=== PATIENT | female | born 1995 | race African-American/Black ===

== ENCOUNTER 2017-06-20 04:39 | Inpatient (IN) | payer OTHER ==
[~2017-06-20] VITALS: Ht 167.6 cm; Wt 124.5 kg
[2017-06-20 04:40] VITALS: BP 121/77; PULSE 75; RESP 16; TEMP 98.5; O2SAT 94
--- NOTE | 2017-06-20 05:29 | PD ---
HPI Chief Complaint: Psychiatric Symptoms Time Seen by Provider: 05:14 Travel History International Travel<30 days: No Contact w/Intl Traveler<30days: No Traveled to known affect area: No History of Present Illness HPI 22-year-old female presents emergency Department accompanied by her mother for evaluation of auditory hallucinations with self persecution and suicidal ideation. Patient states that she hears voices in her head that sound identical to her voice. There telling her that she is worthless and no one likes her. They also tell her that she should kill her self. The patient has a history of cutting in the past. She denies any toxic ingestions. No cutting since March. She is up-to-date with immunizations. He is unsure of her last menstrual cycle. She feels that it is approximately 6 weeks ago and her . She does smoke, drink alcohol and smoke marijuana on occasion. She denies any current medical complaints. No homicidal ideation. PFSH Past Medical History Depression: Yes Tetanus Vaccination: < 5 Years ?: Not LMP: 04/2017 Past Surgical History Surgical History: No Previous Surgery Social History Alcohol Use: Yes Tobacco Use: Yes Substance Use: Yes (MARIJUANA ) Allergies-Medications (Allergen,Severity, Reaction): Coded Allergies: No Known Allergies (Unverified , 06/20/17) Reported Meds & Prescriptions Reported Meds & Active Scripts Active No Active Prescriptions or Reported Medications Review of Systems General / Constitutional: No: Fever Eyes: No: Visual changes HENT: No: Headaches Cardiovascular: No: Chest Pain or Discomfort Respiratory: No: Shortness of Breath Gastrointestinal: No: Abdominal Pain Genitourinary: No: Dysuria Musculoskeletal: No: Pain Skin: No Rash Neurologic: No: Weakness Psychiatric: Positive: Depression, Suicidal Ideations, Disorder of Thought, Mood Disorder, Substance Abuse, No: Anxiety, Homicidal Ideation Endocrine: No: Polydipsia Hematologic/Lymphatic: No: Easy Bruising Physical Exam Narrative GENERAL: Well-nourished, well-developed patient. SKIN: Warm and dry. HEAD: Normocephalic and atraumatic. EYES: No scleral icterus. No injection or drainage. ENT: No nasal drainage noted. Mucous membranes pink. Airway patent. NECK: Supple, trachea midline. Moves head freely without obvious discomfort. CARDIOVASCULAR: Regular rate and rhythm without murmurs, gallops, or rubs. RESPIRATORY: Breath sounds equal bilaterally. No accessory muscle use. GASTROINTESTINAL: Abdomen soft, non-tender, nondistended. EXTREMITIES: No cyanosis or edema. BACK: Nontender without obvious deformity. No CVA tenderness. NEURO: Patient is alert and oriented. no sensorimotor deficits. Nonfocal. Normal speech. PSYCH: Positive auditory hallucinations. Data Data Last Documented VS Vital Signs Date Time Temp Pulse Resp B/P (MAP) Pulse Ox O2 Delivery O2 Flow Rate FiO2 06/20/17 04:40 98.5 75 16 121/77 (92) 94 Room Air Orders Orders Complete Blood Count With Diff (06/20/17 05:24) Comprehensive Metabolic Panel (06/20/17 05:24) Thyroid Stimulating Hormone (06/20/17 05:24) Urinalysis - C+S If Indicated (06/20/17 05:24) Psych Screen (06/20/17 05:24) Drug Screen, Random Urine (06/20/17 05:24) Alcohol (Ethanol) (06/20/17 05:24) Ed Urine Pregnancytest Poc (06/20/17 05:24) Labs Laboratory Tests Test 06/20/17 05:35 06/20/17 05:45 Urine Color YELLOW Urine Turbidity HAZY Urine pH 6.5 Urine Specific [place] 1.019 Urine Protein NEG mg/dL Urine Glucose (UA) NEG mg/dL Urine Ketones NEG mg/dL Urine Occult Blood NEG Urine Nitrite NEG Urine Bilirubin NEG Urine Urobilinogen LESS THAN 2.0 MG/DL Urine Leukocyte Esterase MOD Urine RBC 1 /hpf Urine WBC 6 /hpf Urine Squamous Epithelial Cells 3 /hpf Urine Amorphous Sediment RARE Urine Bacteria FEW /hpf Urine Mucus FEW /lpf Microscopic Urinalysis Comment CULT NOT INDICATED Urine Opiates Screen NEG Urine Barbiturates Screen NEG Urine Amphetamines Screen NEG Urine Benzodiazepines Screen NEG Urine Cocaine Screen NEG Urine Cannabinoids Screen POS White Blood Count 11.7 TH/MM3 Red Blood Count 4.50 MIL/MM3 Hemoglobin 13.5 GM/DL Hematocrit 39.0 % Mean Corpuscular Volume 86.7 FL Mean Corpuscular Hemoglobin 30.0 PG Mean Corpuscular Hemoglobin Concent 34.6 % Red Cell Distribution Width 12.9 % Platelet Count 264 TH/MM3 Mean Platelet Volume 8.5 FL Neutrophils (%) (Auto) 61.3 % Lymphocytes (%) (Auto) 30.2 % Monocytes (%) (Auto) 5.8 % Eosinophils (%) (Auto) 2.1 % Basophils (%) (Auto) 0.6 % Neutrophils # (Auto) 7.2 TH/MM3 Lymphocytes # (Auto) 3.5 TH/MM3 Monocytes # (Auto) 0.7 TH/MM3 Eosinophils # (Auto) 0.2 TH/MM3 Basophils # (Auto) 0.1 TH/MM3 CBC Comment DIFF FINAL Differential Comment [facility] Medical Decision Making Medical Screen Exam Complete: Yes Emergency Medical Condition: Yes Medical Record Reviewed: Yes Interpretation(s) Laboratory Tests Test 06/20/17 05:35 06/20/17 05:45 Urine Color YELLOW Urine Turbidity HAZY Urine pH 6.5 Urine Specific [place] 1.019 Urine Protein NEG mg/dL Urine Glucose (UA) NEG mg/dL Urine Ketones NEG mg/dL Urine Occult Blood NEG Urine Nitrite NEG Urine Bilirubin NEG Urine Urobilinogen LESS THAN 2.0 MG/DL Urine Leukocyte Esterase MOD Urine RBC 1 /hpf Urine WBC 6 /hpf Urine Squamous Epithelial Cells 3 /hpf Urine Amorphous Sediment RARE Urine Bacteria FEW /hpf Urine Mucus FEW /lpf Microscopic Urinalysis Comment CULT NOT INDICATED Urine Opiates Screen NEG Urine Barbiturates Screen NEG Urine Amphetamines Screen NEG Urine Benzodiazepines Screen NEG Urine Cocaine Screen NEG Urine Cannabinoids Screen POS White Blood Count 11.7 TH/MM3 Red Blood Count 4.50 MIL/MM3 Hemoglobin 13.5 GM/DL Hematocrit 39.0 % Mean Corpuscular Volume 86.7 FL Mean Corpuscular Hemoglobin 30.0 PG Mean Corpuscular Hemoglobin Concent 34.6 % Red Cell Distribution Width 12.9 % Platelet Count 264 TH/MM3 Mean Platelet Volume 8.5 FL Neutrophils (%) (Auto) 61.3 % Lymphocytes (%) (Auto) 30.2 % Monocytes (%) (Auto) 5.8 % Eosinophils (%) (Auto) 2.1 % Basophils (%) (Auto) 0.6 % Neutrophils # (Auto) 7.2 TH/MM3 Lymphocytes # (Auto) 3.5 TH/MM3 Monocytes # (Auto) 0.7 TH/MM3 Eosinophils # (Auto) 0.2 TH/MM3 Basophils # (Auto) 0.1 TH/MM3 CBC Comment DIFF FINAL Differential Comment Differential Diagnosis MDM: High Differential diagnoses: Schizophrenia, schizoaffective disorder, bipolar, anxiety, depression, adjustment reaction, mood disorder NOS, ODD, depressive disorder NOS, dementia, dementia with agitation, psychosis NOS, substance induced mood disorder, DMDD, Asperger syndrome, infection,electrolyte abnormality, malingering. Narrative Course Mental health screening discussed with the patient. Psychiatric screen ordered. The patient's been medically cleared. The patient has 6 WBCs or urinary suspect this is possible contamination and not a true UTI. Patient will be treated per her culture. This medical clearance for psychiatric admission Diagnosis Primary Impression: Medical clearance for psychiatric admission Med/Other Pt SpecificInfo: Wound Care Scripts No Active Prescriptions or Reported Meds Condition: Jermaine Chambers Jun 20, 2017 05:29
[2017-06-20 05:59] LABS: AUTOMATED NEUTROPHIL # 7.2 TH/MM3 (1.8-7.7); BASOPHIL # 0.1 TH/MM3 (0-0.2); BASOPHIL % 0.6 % (0.0-2.0); EOSINOPHIL # 0.2 TH/MM3 (0-0.4); EOSINOPHIL % 2.1 % (0.0-4.0); HEMOGLOBIN 13.5 GM/DL (11.6-15.3); LYMPH % 30.2 % (9.0-44.0); LYMPHOCYTE # 3.5 TH/MM3 (1.0-4.8); MEAN CELL VOLUME 86.7 FL (80.0-100.0); MEAN CORPUSCULAR HGB CONC 34.6 % (32.0-36.0); MEAN PLATELET VOLUME 8.5 FL (7.0-11.0); MONO % 5.8 % (0.0-8.0); MONOCYTE # 0.7 TH/MM3 (0-0.9); NEUT % 61.3 % (16.0-70.0); PLATELET COUNT 264 TH/MM3 (150-450); RED CELL DISTRIBUTION WIDTH 12.9 % (11.6-17.2); WHITE BLOOD COUNT 11.7 TH/MM3 (4.0-11.0)
[2017-06-20 06:05] LABS: AMORPHOUS SEDIMENT, URINE RARE; BACTERIA, URINE FEW /hpf; BILIRUBIN, URINE NEG (NEG); BLOOD, URINE NEG (NEG); GLUCOSE,URINE NEG (NEG); KETONE, URINE NEG (NEG); MUCUS URINE FEW /lpf (OCC); NITRITE,URINE NEG (NEG); PH, URINE 6.5 (5.0-8.5); SQUAMOUS EPITHELIAL CELL URINE 3 /hpf (0-5); URINE COLOR YELLOW (YELLW/STRAW); URINE LEUKOCYTE ESTERASE MOD (NEG)
[2017-06-20 07:19] LABS: ALBUMIN 3.5 GM/DL (3.4-5.0); ALT (GPT) 31 U/L (10-53); BICARBONATE 23.3 MEQ/L (21.0-32.0); BLOOD UREA NITROGEN 10 MG/DL (7-18); CALCIUM 8.6 MG/DL (8.5-10.1); CHLORIDE 108 MEQ/L (98-107); CREATININE 0.75 MG/DL (0.50-1.00); GLOMERULAR FILTRATION RATE 118 ML/MIN (>89); GLUCOSE,RANDOM 118 MG/DL (74-106); SODIUM (NA) 141 MEQ/L (136-145)
[2017-06-20 07:31] LABS: ALKALINE PHOSPHATASE 80 U/L (45-117); AST (GOT) 23 U/L (15-37); TOTAL BILIRUBIN ADULT 0.1 MG/DL (0.2-1.0); TOTAL PROTEIN 6.8 GM/DL (6.4-8.2)
[2017-06-20 09:26] VITALS: BP 107/55; PULSE 101; RESP 18; TEMP 98.1; O2SAT 98
[2017-06-20] MEDS ORDERED: NICOTINE 21 MG/24 HR PATCH T-DERMAL PRN (12:45)
[2017-06-20] MEDS ORDERED: MAGNESIUM HYDROXIDE SUSP 30 ML CUP PO PRN (12:45)
[2017-06-20] MEDS ORDERED: ALUMINUM/MAGNESIUM/SIMETH 30 ML CUP PO PRN (12:45)
[2017-06-20] MEDS ORDERED: BENZTROPINE MESYLATE 2 MG/2 ML VIAL IM PRN (12:45)
[2017-06-20] MEDS ORDERED: ACETAMINOPHEN 325 MG TAB PO PRN (12:45)
[2017-06-20] MEDS ORDERED: diphenhydrAMINE HCL 50 MG CAP PO PRN (12:45)
[2017-06-20] MEDS ORDERED: BENZTROPINE MESYLATE 1 MG TAB PO PRN (12:45)
[2017-06-20 15:25] VITALS: BP 119/74; PULSE 86; RESP 18; TEMP 98.1; O2SAT 98
[2017-06-20 18:40] VITALS: BP 146/66; PULSE 71; RESP 18; TEMP 98.1; O2SAT 99
[2017-06-20] MEDS: REMOVE OLD NICODERM (NICOTINE) PATCH T-DERMAL SCH (21:00)
[2017-06-21 06:00] VITALS: BP 101/62; PULSE 69; RESP 18; TEMP 97.6; O2SAT 98
[2017-06-21 12:16] LABS: BASOPHIL % 0.2 % (0.0-2.0); EOSINOPHIL # 0.2 TH/MM3 (0-0.4); EOSINOPHIL % 2.8 % (0.0-4.0); HEMATOCRIT 39.6 % (35.0-46.0); HEMOGLOBIN 13.4 GM/DL (11.6-15.3); LYMPH % 28.4 % (9.0-44.0); LYMPHOCYTE # 2.3 TH/MM3 (1.0-4.8); MEAN CELL VOLUME 87.8 FL (80.0-100.0); MEAN CORPUSCULAR HEMOGLOBIN 29.8 PG (27.0-34.0); MEAN CORPUSCULAR HGB CONC 33.9 % (32.0-36.0); MEAN PLATELET VOLUME 9.1 FL (7.0-11.0); MONO % 7.7 % (0.0-8.0); MONOCYTE # 0.6 TH/MM3 (0-0.9); NEUT % 60.9 % (16.0-70.0); PLATELET COUNT 237 TH/MM3 (150-450); RED BLOOD COUNT 4.52 MIL/MM3 (4.00-5.30); RED CELL DISTRIBUTION WIDTH 13.2 % (11.6-17.2); WHITE BLOOD COUNT 8.2 TH/MM3 (4.0-11.0)
[2017-06-21 12:56] LABS: CHOLESTEROL 151 MG/DL (120-200)
[2017-06-21 12:59] LABS: CHOLESTEROL/ HDL RATIO 3.54 RATIO; HDL CHOLESTEROL 42.6 MG/DL (40.0-60.0); LDL CHOLESTEROL 69 MG/DL (0-99); TRIGLYCERIDES 196 MG/DL (42-150)
[2017-06-21 16:14] LABS: HEMOGLOBIN A1C 5.6 % (4.3-6.0)
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
[2017-06-21 19:22] VITALS: BP 111/69; PULSE 88; RESP 18; TEMP 97.7; O2SAT 97
[2017-06-21] MEDS: traZODone HCL 50 MG TAB PO SCH (21:00)
[2017-06-21] MEDS ORDERED: QUEtiapine FUMARATE 25 MG TAB PO SCH (21:00)
[2017-06-21] MEDS: REMOVE OLD NICODERM (NICOTINE) PATCH T-DERMAL SCH (21:02)
[2017-06-22 05:27] VITALS: BP 100/55; PULSE 74; RESP 16; TEMP 97.6; O2SAT 98
[2017-06-22] MEDS: NICOTINE 21 MG/24 HR PATCH T-DERMAL SCH (09:42)
--- NOTE | 2017-06-22 15:24 | HHI.PYPN ---
Subjective Remarks Patient seen for follow-up, chart reviewed. Discussion she staff reported the patient's noted to be somewhat better today denying any auditory hallucinations but is noted to be seclusive. Patient was found participating in groups outside of the, cooperative. Patient reports that she is feeling "alright" and that her depression is somewhat better today, which was notably improved after she had spoken and had individual psychotherapy with what a therapist today. Patient reports that she has had auditory hallucinations 2 days ago along with suicide ideations also having been 2 days ago. Patient states he spoke with family who she feels is being supportive. Review of Systems Except as stated in HPI: all other systems reviewed are Neg Mental Status Examination Appearance: Appropriate Consciousness: Alert Orientation: x4 Motor Activity: Normal gait Speech: Unremarkable Language: Adequate Fund of Knowledge: Adequate Attention and Concentration: Adequate Memory: Unremarkable Mood: Sad Affect: Sad, Other (dysphoric) Thought Process & Associations: Linear Thought Content: Hallucinations Hallucination Type: Auditory (command auditory hallucinations to kill herself) Delusion Type: None Suicidal Ideation: Yes Suicidal Plan: No Suicidal Intention: No Homicidal Ideation: No Homicidal Plan: No Homicidal Intention: No Insight: Fair Judgment: Impulsive Results Vitals/IOs Vital Signs Date Time Temp Pulse Resp B/P (MAP) Pulse Ox O2 Delivery O2 Flow Rate FiO2 06/22/17 05:27 97.6 74 16 100/55 (70) 98 06/20/17 09:26 Room Air Intake and Output 06/22/17 06/22/17 06/23/17 08:00 16:00 00:00 Intake Total 240 ml 240 ml Balance 240 ml 240 ml Assessment & Plan Problem List: (1) Major depressive disorder, recurrent, severe with psychotic features ICD Codes: F33.3 - Major depressive disorder, recurrent, severe with psychotic symptoms Assessment & Plan Patient at this time reports some improvement in her depression but continues to be noted to be very dysphoric, with flat affect and I will denies any suicide ideations. It has attended when answering this question today. We'll continue to titrate quetiapine to therapeutic dose and we'll increase today to 100 mg at bedtime with a target dose of 300-400 mg daily to serve as monotherapy for depression. Continue with the medications. Continue monitoring behavior. Continue to encourage patient to maintain personal hygienic to participate in groups and activities while on the unit. Discharge planning in progress. Justification for Cont. Inpt. At risk for further decompensation at lower level of care Discharge Planning Patient return back to her residence when psychiatrically stable Laz Schmitt MD Jun 22, 2017 15:24
[2017-06-22 17:37] VITALS: BP 125/57; PULSE 101; RESP 16; TEMP 98.4; O2SAT 98
[2017-06-22] MEDS: REMOVE OLD NICODERM (NICOTINE) PATCH T-DERMAL SCH (21:00)
[2017-06-22] MEDS ORDERED: QUEtiapine FUMARATE 100 MG TAB PO SCH (21:00)
[2017-06-22] MEDS: traZODone HCL 50 MG TAB PO SCH (21:33)
[2017-06-23 06:02] VITALS: BP 110/63; PULSE 71; RESP 16; TEMP 98.2; O2SAT 98
[2017-06-23] MEDS: NICOTINE 21 MG/24 HR PATCH T-DERMAL SCH (08:58)
[2017-06-23] MEDS ORDERED: PILL SPLITTER OTHER PRN ×2 (14:45→15:30)
--- NOTE | 2017-06-23 14:59 | PD.TTN ---
Patient Problems 1. Discharge planning 2. Medication compliance 3. Knowledge deficit 4. Lack of coping skills Progress Toward Goals Provider Present: Dr. Juancarlos Schmitt Provider Input: 06/23/17 doctor is still tritrating medications over the weekend - she appears better and states is improving with her depressed mood and suicidal ideations Psychiatric Counselors Present: Kiara Loving LCSW Psych Therapist Input: 06/23/17 met with patient and discussed coping skills and outpatient follow up, she appears having insight and is motivated to seek counseling and medications once discharged Group Spec/RT/OT/SHAW Present: TAMMY Morfin Group Spec/RT/OT/SHAW Input: 06/23/17 attends select groups and and is social with peers Kiara Loving LCSW Jun 23, 2017 14:59
--- NOTE | 2017-06-23 15:15 | HHI.PYPN ---
Subjective Remarks Patient seen for follow-up, chart reviewed. Discussion she staff reported the patient continued to report auditory hallucinations "off-and-on" noted to be seclusive last evening was visible on the unit this morning. Patient also had difficulties the last night but denies any feelings of self abuse behavior. Patient was found in the room, cooperative interview today. Patient states there is feeling "better" stating that she doesn't feel as depressed today. She denies any auditory hallucinations stating to the last and was couple of days ago despite patient having endorsed his to the nursing staff. Patient states he has not had a resurgence of thoughts of wanting to hurt herself or suicide ideations. Patient is that she was visited by mother yesterday which went well. Review of Systems Except as stated in HPI: all other systems reviewed are Neg Mental Status Examination Appearance: Appropriate Consciousness: Alert Orientation: x4 Motor Activity: Normal gait Speech: Unremarkable Language: Adequate Fund of Knowledge: Adequate Attention and Concentration: Adequate Memory: Unremarkable Mood: Other ("better") Affect: Sad, Other (dysphoric) Thought Process & Associations: Linear Thought Content: Hallucinations Hallucination Type: Auditory (command auditory hallucinations to kill herself) Delusion Type: None Suicidal Ideation: Yes Suicidal Plan: No Suicidal Intention: No Homicidal Ideation: No Homicidal Plan: No Homicidal Intention: No Insight: Fair Judgment: Impulsive Results Vitals/IOs Vital Signs Date Time Temp Pulse Resp B/P (MAP) Pulse Ox O2 Delivery O2 Flow Rate FiO2 06/23/17 06:02 98.2 71 16 110/63 (79) 98 06/20/17 09:26 Room Air Intake and Output 06/23/17 06/23/17 06/24/17 08:00 16:00 00:00 Intake Total 480 ml Balance 480 ml Assessment & Plan Problem List: (1) Major depressive disorder, recurrent, severe with psychotic features ICD Codes: F33.3 - Major depressive disorder, recurrent, severe with psychotic symptoms Assessment & Plan Patient at this time continues to endorse depressed mood but denies any suicide ideations or auditory hallucinations. We'll increase quetiapine to 150 mg by mouth at bedtime with continue upward titration with a target dose of 300-400 mg daily, continuous of medications. Continue to monitor mood and behavior. Discharge planning in progress Justification for Cont. Inpt. At risk for further decompensation if at lower level of care Discharge Planning Back to her residence Laz Schmitt MD Jun 23, 2017 15:15
[2017-06-23 18:00] VITALS: BP 140/64; PULSE 80; RESP 18; TEMP 98.3; O2SAT 99
[2017-06-23] MEDS: REMOVE OLD NICODERM (NICOTINE) PATCH T-DERMAL SCH (21:00)
[2017-06-23] MEDS ORDERED: QUEtiapine FUMARATE 300 MG TAB PO ONE (21:00)
[2017-06-23] MEDS ORDERED: QUEtiapine FUMARATE 100 MG TAB PO SCH ×2 (21:00)
[2017-06-23] MEDS: traZODone HCL 50 MG TAB PO SCH (21:28)
[2017-06-24 06:11] VITALS: BP 102/54; PULSE 66; RESP 21; TEMP 97.4; O2SAT 97
[2017-06-24] MEDS: NICOTINE 21 MG/24 HR PATCH T-DERMAL SCH (09:32)
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
[2017-06-24 18:11] VITALS: BP 141/65; PULSE 77; RESP 16; TEMP 98.8; O2SAT 97
[2017-06-24] MEDS: REMOVE OLD NICODERM (NICOTINE) PATCH T-DERMAL SCH (21:00)
[2017-06-24] MEDS: traZODone HCL 50 MG TAB PO SCH (21:01)
[2017-06-24] MEDS: QUEtiapine FUMARATE 100 MG TAB PO SCH (21:01)
[2017-06-24] MEDS: BENZTROPINE MESYLATE 1 MG TAB PO SCH (21:01)
[2017-06-25 05:53] VITALS: BP 102/58; PULSE 64; RESP 16; TEMP 97.7; O2SAT 98
[2017-06-25] MEDS: BENZTROPINE MESYLATE 1 MG TAB PO SCH ×2 (10:17→22:21)
[2017-06-25] MEDS: NICOTINE 21 MG/24 HR PATCH T-DERMAL SCH (10:17)
--- NOTE | 2017-06-25 12:08 | HHI.PYPN ---
Subjective Remarks Patient was seen and case discussed with nursing. Today patient is very irritable and perseverative on not being able to wear her hoodie jacket. She is not concerned with the policy that does not allow them per nursing. She has not had any "shaking" with Seroquel and denies any side effects. Will cooperative with most of the interview. Mental Status Examination Appearance: Appropriate Consciousness: Alert Orientation: x4 Motor Activity: Normal gait Speech: Unremarkable Language: Adequate Fund of Knowledge: Adequate Attention and Concentration: Adequate Memory: Unremarkable Mood: Oppositional, Other ("better") Affect: Irritable, Other Thought Process & Associations: Linear Thought Content: Hallucinations Hallucination Type: Auditory (command auditory hallucinations to kill herself) Delusion Type: None Suicidal Ideation: Yes (fleeting) Suicidal Plan: No Suicidal Intention: No Homicidal Ideation: No Homicidal Plan: No Homicidal Intention: No Insight: Fair Judgment: Impulsive Results Vitals/IOs Vital Signs Date Time Temp Pulse Resp B/P (MAP) Pulse Ox O2 Delivery O2 Flow Rate FiO2 06/25/17 05:53 97.7 64 16 102/58 (73) 98 Assessment & Plan Problem List: (1) Major depressive disorder, recurrent, severe with psychotic features ICD Codes: F33.3 - Major depressive disorder, recurrent, severe with psychotic symptoms Assessment & Plan Continue current treatment plan Justification for Cont. Inpt. Patient would decompensate in a less restrictive setting Kavon Camarena DO Jun 25, 2017 12:08
[2017-06-25 18:46] VITALS: BP 137/62; PULSE 83; RESP 15; TEMP 98.7; O2SAT 99
[2017-06-25] MEDS: REMOVE OLD NICODERM (NICOTINE) PATCH T-DERMAL SCH (21:00)
[2017-06-25] MEDS: QUEtiapine FUMARATE 100 MG TAB PO SCH (22:21)
[2017-06-25] MEDS: traZODone HCL 50 MG TAB PO SCH (22:21)
[2017-06-26 06:08] VITALS: BP 94/49; PULSE 74; RESP 18; TEMP 97.9; O2SAT 97
[2017-06-26] MEDS: BENZTROPINE MESYLATE 1 MG TAB PO SCH (09:00)
[2017-06-26] MEDS: NICOTINE 21 MG/24 HR PATCH T-DERMAL SCH (09:19)
--- NOTE | 2017-06-26 10:42 | PD.TTN ---
Patient Problems 1. Discharge planning 2. Medication compliance 3. Knowledge deficit 4. Lack of coping skills Progress Toward Goals Provider Present: Dr. Juancarlos Schmitt Provider Input: 06/23/17 doctor is still tritrating medications over the weekend - she appears better and states is improving with her depressed mood and suicidal ideations 06/26/17 continue to titrate medications Psychiatric Counselors Present: Kiara Loving LCSW Psych Therapist Input: 06/23/17 met with patient and discussed coping skills and outpatient follow up, she appears having insight and is motivated to seek counseling and medications once discharged 06/26/17 had a difficult weekend and felt traumatized, PTSD like memories due to a male on the unit reported by counselor who did group this weekend Group Spec/RT/OT/SHAW Present: TAMMY Morfin Group Spec/RT/OT/SHAW Input: 06/23/17 attends select groups and and is social with peers 06/26/17 she attends select groups and is cooperative and pleasant Kiara Loving LCSW Jun 26, 2017 10:42
[2017-06-26] MEDS ORDERED: Benztropine PO (15:42)
[2017-06-26] MEDS ORDERED: TRAZ50TA12 PO (15:42)
[2017-06-26] MEDS ORDERED: QUET1TAB8 PO (15:42)
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
== END 2017-06-26 17:55 | disposition home or self-care (01) | DRG 885 ==
LOC: NEPD 04:39 → NEDA 12:38 → H260 15:18
PROVIDERS: ADMIT Student in an Organized Health Care Education/Training Program; ATTEND Student in an Organized Health Care Education/Training Program
DX: F33.3 Major depressive disorder, recurrent, severe with psychotic symptoms (principal); F12.90 Cannabis use, unspecified, uncomplicated; Z72.0 Tobacco use; Z81.8 Family history of other mental and behavioral disorders
CPT/HCPCS: 80053; 80061; 80307; 81001; 83036; 84443; 84703; 85025; Q0163